=== PATIENT | female | born 1955 | race Caucasian/White ===

== ENCOUNTER 2016-08-07 08:55 | Emergency (ER) | payer OTHER ==
[2016-08-07] MEDS ORDERED: hydrALAZINE INJ 20 MG/ML VIAL As Ordered ONE (09:38)
[2016-08-07] MEDS ORDERED: diazePAM 5 MG TAB As Ordered ONE (09:39)
[2016-08-07 09:53] LABS: BASO % 0.8 % (0.0-1.0); EOS # 0.1 K/mm3 (0.0-0.50); EOS % 1.7 % (0.0-3.0); LARGE UNSTAINED CELL # 0.2 K/mm3 (0.0-0.4); LARGE UNSTAINED CELL % 3.8 % (0.0-4.0); LYMPH # 2.5 K/mm3 (1.5-4.5); LYMPH % 51.5 % (24.0-44.0); MONO # 0.4 K/mm3 (0.0-0.8); MONO % 7.2 % (0.0-5.0); NEUTROPHILS # 1.7 K/mm3 (1.8-7.7); PLATELET COUNT, AUTOMATED 127 k/mm3 (150-450); RED CELL DISTRIBUTION WIDTH 12.2 % (11.5-14.5); WHITE BLOOD COUNT 4.9 K/mm3 (4.0-10.0)
[2016-08-07 10:03] LABS: MEAN CORPUSCULAR HEMOGLOBIN 32.1 pg (27.0-33.0); MEAN CORPUSCULAR HGB CONC 33.6 g/dl (32.0-36.5); MEAN CORPUSCULAR VOLUME 95.6 fl (80.0-96.0)
[2016-08-07 10:10] LABS: ALBUMIN 3.9 GM/DL (3.2-5.2); ALBUMIN/GLOBULIN RATIO 0.78 (1.00-1.93); ALKALINE PHOSPHATASE 87 U/L (45-117); ALT/SGPT 303 U/L (12-78); ANION GAP 8 MEQ/L (8-16); AST/SGOT 152 U/L (15-37); BILIRUBIN,DIRECT 0.2 MG/DL (0.0-0.2); BILIRUBIN,TOTAL 0.5 MG/DL (0.2-1.0); BLOOD UREA NITROGEN 12 MG/DL (7-18); CALCIUM LEVEL 9.3 MG/DL (8.8-10.2); CARBON DIOXIDE LEVEL 28 MEQ/L (21-32); CHLORIDE LEVEL 106 MEQ/L (98-107); CREATININE FOR GFR 0.64 MG/DL (0.55-1.02); GLOMERULAR FILTRATION RATE > 60.0 (>45); GLUCOSE, FASTING 105 MG/DL (80-110); POTASSIUM SERUM 3.7 MEQ/L (3.5-5.1); SODIUM LEVEL 142 MEQ/L (136-145); TOTAL PROTEIN 8.9 GM/DL (6.4-8.2)
--- NOTE | 2016-08-07 11:50 | EDDOCDS ---
Nurse's Notes [facility] Name: Nasrin Martel Age: 61 yrs Sex: Female : 1955 Arrival Date: 08/07/2016 Time: 08:55 Bed 11 Private MD: Diagnosis: Secondary hypertension, unspecified Presentation: 08/07 09:01 Presenting complaint: Patient states: Went to have tooth pulled today and was told to [facility] come to ED for elevated blood pressure. Has been having dizziness, palpitations. Adult Sepsis Screening: The patient does not have new or worsening altered mentation. Patient's respiratory rate is less than 22. Systolic blood pressure is greater than 100. Patient has a qSOFA score of 0- Negative Sepsis Screen. Suicide/Homicide risk assessment- the patient denies having any suicidal and/or homicidal ideations and does not present with any other emotional, behavioral or mental health complaints. 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 Transition of care: patient was not received from another setting of care. 09:01 Acuity: PATTI Level 3 [facility] 09:01 Method Of Arrival: Walkin/Carried/[facility]std [facility] Triage Assessment: 09:03 General: Appears distressed, Behavior is anxious, cooperative. Pain: Denies pain. HIV [facility] screening NA for this visit Offered previously. Neurological: Reports dizziness. Respiratory: Airway is patent Respiratory effort is even, unlabored. Derm: Skin is pink, warm & dry. Historical: - Allergies: PENICILLINS; Codeine Sulfate; - Home Meds: 1. none - PMHx: Arthritis; hypoglycemia; - PSHx: none; - Social history: Smoking status: Patient states former smoker of tobacco. No barriers to communication noted, The patient speaks fluent Tajik. - Family history: Not pertinent. - : The pt / caregiver states he / she is not on anticoagulants. Home medication list is obtained from the patient. - Exposure Risk Screening:: None identified. Screenin:55 Screening information is obtained from the patient. Fall risk: No risks identified. ja5 Assistance ADL's: requires no assistance with activities of daily living. Abuse/DV Screen: The patient / caregiver reports he/she is: not in a situation that causes fear, pain or injury. Nutritional screening: On no prescribed diet. Advance Directives: Currently, there is no health care proxy. There is no active DNR order. There is no living will. There is no Power of Environmental Tech. home support is adequate. Assessment: 09:30 General: Pt anxious. Initially is resistant to having IV placed, does not want to have jc4 blood work done. States feels very anxious. Explained procedure to patient, patient is agreeable but is requesting to have Valium administered, states, "I want just a small dose, 2.[address] mg". Dr. Staley made aware. 09:57 General: Appears distressed, Behavior is anxious. Pain: Denies pain. Neurological: ja5 Level of Consciousness is awake, alert, Oriented to person, place, time, Speech is normal, Facial symmetry appears normal. Cardiovascular: Capillary refill < 3 seconds Heart tones S1 S2 present. Respiratory: Airway is patent Respiratory effort is even, unlabored, Respiratory pattern is regular, symmetrical, Breath sounds are clear bilaterally. Derm: Skin is intact, Skin is Skin is pink, warm & dry. 11:17 General: Patient is currently resting in stretcher and states that she is relaxed, ja5 comfortable and has no needs at this time.. 11:45 General: Appears in no apparent distress, Behavior is appropriate for age, cooperative. ja5 Pain: Denies pain. Neurological: Level of Consciousness is awake, alert, Oriented to person, place, time. Cardiovascular: Capillary refill < 3 seconds. Respiratory: Airway is patent Respiratory effort is even, unlabored, Respiratory pattern is regular, symmetrical. Derm: Skin is intact, Skin is pink, warm & dry. Vital Signs: 09:00 BP 262 / 137; Pulse 109; Resp 18; Temp 98.3; Pulse Ox 97% on R/A; Weight 48.99 kg; [facility] Height 5 ft. (152.40 cm); Pain 0/10; 09:24 BP 218 / 92 RA Sitting (man/); jc4 09:24 BP 230 / 98 LA Sitting (man/); jc4 09:57 BP 190 / 89 (auto/); jc4 09:57 Pulse 78 MON; Pulse Ox 97% ; jc4 10:12 BP 177 / 88 (auto/); jc4 10:12 Pulse 86 MON; Pulse Ox 96% ; jc4 10:27 BP 178 / 93 (auto/); jc4 10:27 Pulse 78 MON; Pulse Ox 96% ; jc4 10:42 BP 178 / 96 (auto/); jc4 10:43 Pulse 82 MON; Pulse Ox 97% ; jc4 11:16 BP 164 / 79 LA Supine (man/); ja5 11:43 BP 181 / 86 Supine (auto/); Pulse 84; Resp 14; Temp 98.4(O); Pulse Ox 96% on R/A; Pain ja5 0/10; 11:44 ja5 09:00 Body Mass Index 21.09 (48.99 kg, 152.40 cm) [facility] 11:44 Dr. Staley has been notified of final blood pressure 5 Vitals: 09:00 Log In Time: August 07, 2016 at 08:52. [facility] ED Course: 08:56 Patient visited by Genna Schmidt. mm15 08:56 Patient moved to [place] [id number] 09:02 Triage Initiated [facility] 09:03 Patient visited by Briseyda Huggins RN. [facility] 09:04 Kera OwensRN is Primary Nurse. [facility] 09:04 Maddy Loaiza RN is Primary Nurse. [facility] 09:04 Patient moved to [facility] 09:07 Patient visited by Flaquita Staley MD. fg 09:07 Flaquita Staley MD is Attending Physician. fg 09:12 EKG done. (by ED staff). Reviewed by Flaquita Staley MD. jrd 09:35 Basic Metabolic Profile Sent. jc4 09:35 CBC with Diff Sent. jc4 09:36 LIVER PROFILE Sent. jc4 09:45 Inserted saline lock: 20 gauge in right antecubital area The patient tolerated the jc4 procedure well. 09:49 Patient visited by Maddy Loaiza RN. jc4 09:49 The patient / caregiver is instructed regarding the plan of care and ED course. jc4 10:02 Patient visited by Lucrecia Lyons RN. ja5 10:52 [facility] Payment Agreement was scanned into [place] [employer] and attached to record. lg 11:16 Patient visited by Lucrecia Lyons RN. ja5 11:32 [facility] is Referral Physician. fg 11:45 No procedures done that require assistance. ja5 11:47 Discontinued lock bleeding controlled, pressure dressing applied, No redness/swelling ja5 at site. Administered Medications: 09:25 Not Given (Duplicate Order): hydrALAZINE 10 mg IV at bolus once fg 09:36 Not Given (Patient Refused): LORazepam 0.5 mg PO once fg 09:50 Drug: hydrALAZINE 5 mg [hydralazine 20 mg/mL injection solution] Route: IV; Rate: ja5 bolus; Site: right antecubital; 09:50 Drug: Diazepam 2.5 mg [diazepam 5 mg tablet (0.5 tabs)] Route: PO; ja5 Order Results: Lab Order: CBC with Diff; SPEC'M 08/07/16 09:34 Test: WHITE BLOOD COUNT; Value: 4.9; Range: 4.0-10.0; Units: K/mm3; Status: F Test: RED BLOOD COUNT; Value: 4.83; Range: 4.00-5.40; Units: M/mm3; Status: F Test: HEMOGLOBIN; Value: 15.8; Range: 12.0-16.0; Units: g/dl; Status: F Test: HEMATOCRIT; Value: 46.2; Range: 36.0-47.0; Units: %; Status: F Test: MEAN CORPUSCULAR VOLUME; Value: 95.6; Range: 80.0-96.0; Units: fl; Status: F Test: MEAN CORPUSCULAR HEMOGLOBIN; Value: 32.1; Range: 27.0-33.0; Units: pg; Status: F Test: MEAN CORPUSCULAR HGB CONC; Value: 33.6; Range: 32.0-36.5; Units: g/dl; Status: F Test: RED CELL DISTRIBUTION WIDTH; Value: 12.2; Range: 11.5-14.5; Units: %; Status: F Test: PLATELET COUNT, AUTOMATED; Value: 127; Range: 150-450; Abnormal: Below low normal; Units: k/mm3; Status: F Test: NEUTROPHILS %; Value: 35.0; Range: 36.0-66.0; Abnormal: Below low normal; Units: %; Status: F Test: LYMPH %; Value: 51.5; Range: 24.0-44.0; Abnormal: Above high normal; Units: %; Status: F Test: MONO %; Value: 7.2; Range: 0.0-5.0; Abnormal: Above high normal; Units: %; Status: F Test: EOS %; Value: 1.7; Range: 0.0-3.0; Units: %; Status: F Test: BASO %; Value: 0.8; Range: 0.0-1.0; Units: %; Status: F Test: LARGE UNSTAINED CELL %; Value: 3.8; Range: 0.0-4.0; Units: %; Status: F Test: NEUTROPHILS #; Value: 1.7; Range: 1.8-7.7; Abnormal: Below low normal; Units: K/mm3; Status: F Test: LYMPH #; Value: 2.5; Range: 1.5-4.5; Units: K/mm3; Status: F Test: MONO #; Value: 0.4; Range: 0.0-0.8; Units: K/mm3; Status: F Test: EOS #; Value: 0.1; Range: 0.0-0.50; Units: K/mm3; Status: F Test: BASO #; Value: 0.0; Range: 0.0-0.2; Units: K/mm3; Status: F Test: LARGE UNSTAINED CELL #; Value: 0.2; Range: 0.0-0.4; Units: K/mm3; Status: F Lab Order: Basic Metabolic Profile; SPEC'M 08/07/16 09:34 Test: GLUCOSE, FASTING; Value: 105; Range: 80-110; Units: MG/DL; Status: F Test: BLOOD UREA NITROGEN; Value: 12; Range: 7-18; Units: MG/DL; Status: F Test: CREATININE FOR GFR; Value: 0.64; Range: 0.55-1.02; Units: MG/DL; Status: F Test: GLOMERULAR FILTRATION RATE; Value: > 60.0; Range: >45; Status: F Test: SODIUM LEVEL; Value: 142; Range: 136-145; Units: MEQ/L; Status: F Test: POTASSIUM SERUM; Value: 3.7; Range: 3.5-5.1; Units: MEQ/L; Status: F Test: CHLORIDE LEVEL; Value: 106; Range: 98-107; Units: MEQ/L; Status: F Test: CARBON DIOXIDE LEVEL; Value: 28; Range: 21-32; Units: MEQ/L; Status: F Test: ANION GAP; Value: 8; Range: 8-16; Units: MEQ/L; Status: F Test: CALCIUM LEVEL; Value: 9.3; Range: 8.8-10.2; Units: MG/DL; Status: F Test Note: ; Units are mL/min/1.73 m2 Chronic Kidney Disease Staging per NKF: Stage I & II GFR >=60 Normal to Mildly Decreased Stage III GFR 30-59 Moderately Decreased Stage IV GFR 15-29 Severely Decreased Stage V GFR <15 Very Little GFR Left ESRD GFR <15 on [employer] Lab Order: LIVER PROFILE; LAZARO'Ramses 08/07/16 09:34 Test: AST/SGOT; Value: 152; Range: 15-37; Abnormal: Above high normal; Units: U/L; Status: F Test: ALT/SGPT; Value: 303; Range: 12-78; Abnormal: Above high normal; Units: U/L; Status: F Test: ALKALINE PHOSPHATASE; Value: 87; Range: 45-117; Units: U/L; Status: F Test: BILIRUBIN,TOTAL; Value: 0.5; Range: 0.2-1.0; Units: MG/DL; Status: F Test: BILIRUBIN,DIRECT; Value: 0.2; Range: 0.0-0.2; Units: MG/DL; Status: F Test: TOTAL PROTEIN; Value: 8.9; Range: 6.4-8.2; Abnormal: Above high normal; Units: GM/DL; Status: F Test: ALBUMIN; Value: 3.9; Range: 3.2-5.2; Units: GM/DL; Status: F Test: ALBUMIN/GLOBULIN RATIO; Value: 0.78; Range: 1.00-1.93; Abnormal: Below low normal; Status: F Outcome: 11:32 Discharge ordered by Provider. fg 11:47 Discharge Assessment: Patient awake, alert and oriented x 3. No cognitive and/or ja5 functional deficits noted. Patient verbalized understanding of disposition instructions. patient administered narcotics - yes. Pt provided with safe discharge. The following High Risk Discharge criteria are identified: None. Discharged to home ambulatory, with significant other. Condition: stable. Discharge instructions given to patient, Instructed on discharge instructions, follow up and referral plans. medication usage, Demonstrated understanding of instructions, medications, Pt was receptive of discharge instructions/ teaching. No special radiology studies were completed. Property :Personal belongings accompany Pt. 11:49 Patient left the ED. ja5 Signatures: Briseyda Huggins, RN RN Kathy Chaudhary, Maddy Jimenez lg, RN RN jc4 Genna Schmidt mm15 Aki Al, JULIEN CHANNEL LIP STIFFENER INSOLES d Flaquita Staley MD MD fg Anderson, Jessica,RN RN ja5 MTDD
--- NOTE | 2016-08-07 11:50 | EDDOCDS ---
Physician Documentation [facility] Name: Nasrin Martel Age: 61 yrs Sex: Female : 1955 Arrival Date: 08/07/2016 Time: 08:55 Bed 11 Private MD: Disposition: 08/07/16 11:32 Discharged to Home/Self Care. Impression: Secondary hypertension, unspecified. - Condition is Stable. - Discharge Instructions: Hypertension, [id number]. - Prescriptions for Captopril 12.5 mg Oral Tablet - take 1 tablet by ORAL route every 12 hours; 20 tablet. - Medication Reconciliation, Local Pharmacy Hours form. - [facility] up: [facility]; When: Call to arrange an appointment; Reason: Continuance of care. - Problem is chronic. - Symptoms are unchanged. Historical: - Allergies: PENICILLINS; Codeine Sulfate; - Home Meds: 1. none - PMHx: Arthritis; hypoglycemia; - PSHx: none; - Social history: Smoking status: Patient states former smoker of tobacco. No barriers to communication noted, The patient speaks fluent Mosotho. - Family history: Not pertinent. - : The pt / caregiver states he / she is not on anticoagulants. Home medication list is obtained from the patient. - Exposure Risk Screening:: None identified. Vital Signs: 08/07 09:00 BP 262 / 137; Pulse 109; Resp 18; Temp 98.3; Pulse Ox 97% on R/A; Weight 48.99 kg / 108 mcp lbs; Height 5 ft. (152.40 cm); Pain 0/10; 09:24 BP 218 / 92 RA Sitting (man/); jc4 09:24 BP 230 / 98 LA Sitting (man/); jc4 09:57 BP 190 / 89 (auto/); jc4 09:57 Pulse 78 MON; Pulse Ox 97% ; jc4 10:12 BP 177 / 88 (auto/); jc4 10:12 Pulse 86 MON; Pulse Ox 96% ; jc4 10:27 BP 178 / 93 (auto/); jc4 10:27 Pulse 78 MON; Pulse Ox 96% ; jc4 10:42 BP 178 / 96 (auto/); jc4 10:43 Pulse 82 MON; Pulse Ox 97% ; jc4 11:16 BP 164 / 79 LA Supine (man/); ja5 11:43 BP 181 / 86 Supine (auto/); Pulse 84; Resp 14; Temp 98.4(O); Pulse Ox 96% on R/A; Pain ja5 0/10; 11:44 ja5 09:00 Body Mass Index 21.09 (48.99 kg, 152.40 cm) [facility] 11:44 Dr. Staley has been notified of final blood pressure ja5 MDM: 09:06 ECG WITH READING ER PHYS+CARDIAG ordered. EDMS 09:08 IV Saline Lock ordered. fg 09:08 hydrALAZINE 10 mg IV at bolus once ordered. fg 09:08 Misc. Nursing Order ordered. fg 09:09 CBC with Diff Ordered. EDMS 09:09 Basic Metabolic Profile Ordered. EDMS 09:25 hydrALAZINE 5 mg IV at bolus once ordered. fg 09:25 LORazepam 0.5 mg PO once ordered. fg 09:26 LIVER PROFILE Ordered. EDMS 09:36 Diazepam 2.5 mg PO once ordered. fg 10:04 Financial registration complete. 10:52 [facility] Payment Agreement was scanned into [employer] and attached to record. lg Administered Medications: 09:25 Not Given (Duplicate Order): hydrALAZINE 10 mg IV at bolus once fg 09:36 Not Given (Patient Refused): LORazepam 0.5 mg PO once fg 09:50 Drug: hydrALAZINE 5 mg [hydralazine 20 mg/mL injection solution] Route: IV; Rate: ja5 bolus; Site: right antecubital; 09:50 Drug: Diazepam 2.5 mg [diazepam 5 mg tablet (0.5 tabs)] Route: PO; ja5 Signatures: Dispatcher [employer] EDBriseyda Mora RN RN mcp Ganter, LoriLee, Reg Reg Flaquita Staley MD MD Lucrecia Lyons RN RN ja5 The chart was reviewed and I authenticate all verbal orders and agree with the evaluation and treatment provided.Corrections: (The following items were deleted from the chart) 09:26 09:23 LIVER PROFILE+LAB ordered. EDMI EDMS Attachments: 10:52 [facility] Payment Agreement lg MTDD
--- NOTE | 2016-08-08 06:44 | ECGEPIP ---
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
--- NOTE | 2016-08-09 12:50 | EDDOCDS ---
Physician Documentation [facility] Name: Nasrin Martel Age: 61 yrs Sex: Female : 1955 Arrival Date: 08/07/2016 Time: 08:55 Bed 11 Private MD: Disposition: 08/07/16 11:32 Discharged to Home/Self Care. Impression: Secondary hypertension, unspecified. - Condition is Stable. - Discharge Instructions: Hypertension, [id number]. - Prescriptions for Captopril 12.5 mg Oral Tablet - take 1 tablet by ORAL route every 12 hours; 20 tablet. - Medication Reconciliation, Local Pharmacy Hours form. - Follow up: [facility]; When: Call to arrange an appointment; Reason: Continuance of care. - Problem is chronic. - Symptoms are unchanged. Historical: - Allergies: PENICILLINS; Codeine Sulfate; - Home Meds: 1. none - PMHx: Arthritis; hypoglycemia; - PSHx: none; - Social history: Smoking status: Patient states former smoker of tobacco. No barriers to communication noted, The patient speaks fluent [place]. - Family history: Not pertinent. - : The pt / caregiver states he / she is not on anticoagulants. Home medication list is obtained from the patient. - Exposure Risk Screening:: None identified. Vital Signs: 08/07 09:00 BP 262 / 137; Pulse 109; Resp 18; Temp 98.3; Pulse Ox 97% on R/A; Weight 48.99 kg / 108 mcp lbs; Height 5 ft. (152.40 cm); Pain 0/10; 09:24 BP 218 / 92 RA Sitting (man/); jc4 09:24 BP 230 / 98 LA Sitting (man/); jc4 09:57 BP 190 / 89 (auto/); jc4 09:57 Pulse 78 MON; Pulse Ox 97% ; jc4 10:12 BP 177 / 88 (auto/); jc4 10:12 Pulse 86 MON; Pulse Ox 96% ; jc4 10:27 BP 178 / 93 (auto/); jc4 10:27 Pulse 78 MON; Pulse Ox 96% ; jc4 10:42 BP 178 / 96 (auto/); jc4 10:43 Pulse 82 MON; Pulse Ox 97% ; jc4 11:16 BP 164 / 79 LA Supine (man/); ja5 11:43 BP 181 / 86 Supine (auto/); Pulse 84; Resp 14; Temp 98.4(O); Pulse Ox 96% on R/A; Pain ja5 0/10; 11:44 ja5 09:00 Body Mass Index 21.09 (48.99 kg, 152.40 cm) [facility] 11:44 Dr. Staley has been notified of final blood pressure ja5 MDM: 09:06 ECG WITH READING ER PHYS+CARDIAG ordered. EDMS 09:08 IV Saline Lock ordered. fg 09:08 hydrALAZINE 10 mg IV at bolus once ordered. fg 09:08 Misc. Nursing Order ordered. fg 09:09 CBC with Diff Ordered. EDMS 09:09 Basic Metabolic Profile Ordered. EDMS 09:25 hydrALAZINE 5 mg IV at bolus once ordered. fg 09:25 LORazepam 0.5 mg PO once ordered. fg 09:26 LIVER PROFILE Ordered. EDMS 09:36 Diazepam 2.5 mg PO once ordered. fg 10:04 Financial registration complete. lg 10:52 [facility] Payment Agreement was scanned into [employer] and attached to record. lg 13:58 T-Sheet-- Draft Copy was scanned into [employer] and attached to record. gb 13:58 ECG/EKG was scanned into [employer] and attached to record. gb 13:58 Trend VS was scanned into [employer] and attached to record. gb Administered Medications: 09:25 Not Given (Duplicate Order): hydrALAZINE 10 mg IV at bolus once fg 09:36 Not Given (Patient Refused): LORazepam 0.5 mg PO once fg 09:50 Drug: hydrALAZINE 5 mg [hydralazine 20 mg/mL injection solution] Route: IV; Rate: ja5 bolus; Site: right antecubital; 09:50 Drug: Diazepam 2.5 mg [diazepam 5 mg tablet (0.5 tabs)] Route: PO; ja5 Signatures: Dispatcher [employer] EDBriseyda Mora RN RN [facility] Rachel Fernando, Reg Reg gb Kathy Peng, Reg Reg lg Flaquita Staley MD MD fg Anderson, JessicaRN JOSÉ day The chart was reviewed and I authenticate all verbal orders and agree with the evaluation and treatment provided.Corrections: (The following items were deleted from the chart) 09:26 09:23 LIVER PROFILE+LAB ordered. EDMS EDMS Attachments: 10:52 [facility] Payment Agreement lg 13:58 T-Sheet-- Draft Copy gb 13:58 ECG/EKG gb Chart Complete MTDD
--- NOTE | 2016-08-09 12:50 | EDDOCDS ---
Nurse's Notes [facility] Name: Dede Martel Age: 61 yrs Sex: Female : 1955 Arrival Date: 08/07/2016 Time: 08:55 Bed 11 Private MD: Diagnosis: Secondary hypertension, unspecified Presentation: 08/07 09:01 Presenting complaint: Patient states: Went to have tooth pulled today and was told to [facility] come to ED for elevated blood pressure. Has been having dizziness, palpitations. Adult Sepsis Screening: The patient does not have new or worsening altered mentation. Patient's respiratory rate is less than 22. Systolic blood pressure is greater than 100. Patient has a qSOFA score of 0- Negative Sepsis Screen. Suicide/Homicide risk assessment- the patient denies having any suicidal and/or homicidal ideations and does not present with any other emotional, behavioral or mental health complaints. Status: Patient is not a clinical laboratory service teacher or dependent. Transition of care: patient was not received from another setting of care. 09:01 Acuity: PATTI Level 3 [facility] 09:01 Method Of Arrival: Walkin/Carried/Asstd [facility] Triage Assessment: 09:03 General: Appears distressed, Behavior is anxious, cooperative. Pain: Denies pain. HIV [facility] screening NA for this visit Offered previously. Neurological: Reports dizziness. Respiratory: Airway is patent Respiratory effort is even, unlabored. Derm: Skin is pink, warm & dry. Historical: - Allergies: PENICILLINS; Codeine Sulfate; - Home Meds: 1. none - PMHx: Arthritis; hypoglycemia; - PSHx: none; - Social history: Smoking status: Patient states former smoker of tobacco. No barriers to communication noted, The patient speaks fluent Maltese. - Family history: Not pertinent. - : The pt / caregiver states he / she is not on anticoagulants. Home medication list is obtained from the patient. - Exposure Risk Screening:: None identified. Screenin:55 Screening information is obtained from the patient. Fall risk: No risks identified. ja5 Assistance ADL's: requires no assistance with activities of daily living. Abuse/DV Screen: The patient / caregiver reports he/she is: not in a situation that causes fear, pain or injury. Nutritional screening: On no prescribed diet. Advance Directives: Currently, there is no health care proxy. There is no active DNR order. There is no living will. There is no Power of Order Checker. home support is adequate. Assessment: 09:30 General: Pt anxious. Initially is resistant to having IV placed, does not want to have jc4 blood work done. States feels very anxious. Explained procedure to patient, patient is agreeable but is requesting to have Valium administered, states, "I want just a small dose, 2.[address] mg[address] Dr[address] Staley made aware. 09:57 General: Appears distressed, Behavior is anxious. Pain: Denies pain. Neurological: ja5 Level of Consciousness is awake, alert, Oriented to person, place, time, Speech is normal, Facial symmetry appears normal. Cardiovascular: Capillary refill < 3 seconds Heart tones S1 S2 present. Respiratory: Airway is patent Respiratory effort is even, unlabored, Respiratory pattern is regular, symmetrical, Breath sounds are clear bilaterally. Derm: Skin is intact, Skin is Skin is pink, warm & dry. 11:17 General: Patient is currently resting in stretcher and states that she is relaxed, ja5 comfortable and has no needs at this time.. 11:45 General: Appears in no apparent distress, Behavior is appropriate for age, cooperative. ja5 Pain: Denies pain. Neurological: Level of Consciousness is awake, alert, Oriented to person, place, time. Cardiovascular: Capillary refill < 3 seconds. Respiratory: Airway is patent Respiratory effort is even, unlabored, Respiratory pattern is regular, symmetrical. Derm: Skin is intact, Skin is pink, warm & dry. Vital Signs: 09:00 BP 262 / 137; Pulse 109; Resp 18; Temp 98.3; Pulse Ox 97% on R/A; Weight 48.99 kg; [facility] Height 5 ft. (152.40 cm); Pain 0/10; 09:24 BP 218 / 92 RA Sitting (man/); jc4 09:24 BP 230 / 98 LA Sitting (man/); jc4 09:57 BP 190 / 89 (auto/); jc4 09:57 Pulse 78 MON; Pulse Ox 97% ; jc4 10:12 BP 177 / 88 (auto/); jc4 10:12 Pulse 86 MON; Pulse Ox 96% ; jc4 10:27 BP 178 / 93 (auto/); jc4 10:27 Pulse 78 MON; Pulse Ox 96% ; jc4 10:42 BP 178 / 96 (auto/); jc4 10:43 Pulse 82 MON; Pulse Ox 97% ; jc4 11:16 BP 164 / 79 LA Supine (man/); ja5 11:43 BP 181 / 86 Supine (auto/); Pulse 84; Resp 14; Temp 98.4(O); Pulse Ox 96% on R/A; Pain ja5 0/10; 11:44 ja5 09:00 Body Mass Index 21.09 (48.99 kg, 152.40 cm) [facility] 11:44 Dr. Staley has been notified of final blood pressure 5 Vitals: 09:00 Log In Time: August 07, 2016 at 08:52. [facility] ED Course: 08:56 Patient visited by Genna Schmidt. mm15 08:56 Patient moved to [facility]15 09:02 Triage Initiated [facility] 09:03 Patient visited by Briseyda Huggins RN. [facility] 09:04 Kera Owens,RN is Primary Nurse. [facility] 09:04 Maddy Loaiza, JOSÉ is Primary Nurse. [facility] 09:04 Patient moved to [facility] 09:07 Patient visited by Flaquita Staley MD. fg 09:07 Flaquita Staley MD is Attending Physician. fg 09:12 EKG done. (by ED staff). Reviewed by Flaquita Staley MD. jrd 09:35 Basic Metabolic Profile Sent. jc4 09:35 CBC with Diff Sent. jc4 09:36 LIVER PROFILE Sent. jc4 09:45 Inserted saline lock: 20 gauge in right antecubital area The patient tolerated the jc4 procedure well. 09:49 Patient visited by Maddy Loaiza RN. jc4 09:49 The patient / caregiver is instructed regarding the plan of care and ED course. jc4 10:02 Patient visited by Lucrecia Lyons RN. ja5 10:52 [facility] Payment Agreement was scanned into [employer] and attached to record. lg 11:16 Patient visited by Lucrecia Lyons RN. ja5 11:32 [facility] is Referral Physician. fg 11:45 No procedures done that require assistance. ja5 11:47 Discontinued lock bleeding controlled, pressure dressing applied, No redness/swelling ja5 at site. 13:58 T-Sheet-- Draft Copy was scanned into [employer] and attached to record. gb 13:58 ECG/EKG was scanned into [employer] and attached to record. 13:58 Trend VS was scanned into [employer] and attached to record. gb 08/08 06:53 EKG-ADULT Returned. EDMS Administered Medications: 08/07 09:25 Not Given (Duplicate Order): hydrALAZINE 10 mg IV at bolus once fg 09:36 Not Given (Patient Refused): LORazepam 0.5 mg PO once fg 09:50 Drug: hydrALAZINE 5 mg [hydralazine 20 mg/mL injection solution] Route: IV; Rate: ja5 bolus; Site: right antecubital; 09:50 Drug: Diazepam 2.5 mg [diazepam 5 mg tablet (0.5 tabs)] Route: PO; ja5 Attachments: 13:58 Trend VS gb Order Results: Lab Order: CBC with Diff; SPEC'M 08/07/16 09:34 Test: WHITE BLOOD COUNT; Value: 4.9; Range: 4.0-10.0; Units: K/mm3; Status: F Test: RED BLOOD COUNT; Value: 4.83; Range: 4.00-5.40; Units: M/mm3; Status: F Test: HEMOGLOBIN; Value: 15.8; Range: 12.0-16.0; Units: g/dl; Status: F Test: HEMATOCRIT; Value: 46.2; Range: 36.0-47.0; Units: %; Status: F Test: MEAN CORPUSCULAR VOLUME; Value: 95.6; Range: 80.0-96.0; Units: fl; Status: F Test: MEAN CORPUSCULAR HEMOGLOBIN; Value: 32.1; Range: 27.0-33.0; Units: pg; Status: F Test: MEAN CORPUSCULAR HGB CONC; Value: 33.6; Range: 32.0-36.5; Units: g/dl; Status: F Test: RED CELL DISTRIBUTION WIDTH; Value: 12.2; Range: 11.5-14.5; Units: %; Status: F Test: PLATELET COUNT, AUTOMATED; Value: 127; Range: 150-450; Abnormal: Below low normal; Units: k/mm3; Status: F Test: NEUTROPHILS %; Value: 35.0; Range: 36.0-66.0; Abnormal: Below low normal; Units: %; Status: F Test: LYMPH %; Value: 51.5; Range: 24.0-44.0; Abnormal: Above high normal; Units: %; Status: F Test: MONO %; Value: 7.2; Range: 0.0-5.0; Abnormal: Above high normal; Units: %; Status: F Test: EOS %; Value: 1.7; Range: 0.0-3.0; Units: %; Status: F Test: BASO %; Value: 0.8; Range: 0.0-1.0; Units: %; Status: F Test: LARGE UNSTAINED CELL %; Value: 3.8; Range: 0.0-4.0; Units: %; Status: F Test: NEUTROPHILS #; Value: 1.7; Range: 1.8-7.7; Abnormal: Below low normal; Units: K/mm3; Status: F Test: LYMPH #; Value: 2.5; Range: 1.5-4.5; Units: K/mm3; Status: F Test: MONO #; Value: 0.4; Range: 0.0-0.8; Units: K/mm3; Status: F Test: EOS #; Value: 0.1; Range: 0.0-0.50; Units: K/mm3; Status: F Test: BASO #; Value: 0.0; Range: 0.0-0.2; Units: K/mm3; Status: F Test: LARGE UNSTAINED CELL #; Value: 0.2; Range: 0.0-0.4; Units: K/mm3; Status: F Lab Order: Basic Metabolic Profile; [facility] 08/07/16 09:34 Test: GLUCOSE, FASTING; Value: 105; Range: 80-110; Units: MG/DL; Status: F Test: BLOOD UREA NITROGEN; Value: 12; Range: 7-18; Units: MG/DL; Status: F Test: CREATININE FOR GFR; Value: 0.64; Range: 0.55-1.02; Units: MG/DL; Status: F Test: GLOMERULAR FILTRATION RATE; Value: > 60.0; Range: >45; Status: F Test: SODIUM LEVEL; Value: 142; Range: 136-145; Units: MEQ/L; Status: F Test: POTASSIUM SERUM; Value: 3.7; Range: 3.5-5.1; Units: MEQ/L; Status: F Test: CHLORIDE LEVEL; Value: 106; Range: 98-107; Units: MEQ/L; Status: F Test: CARBON DIOXIDE LEVEL; Value: 28; Range: 21-32; Units: MEQ/L; Status: F Test: ANION GAP; Value: 8; Range: 8-16; Units: MEQ/L; Status: F Test: CALCIUM LEVEL; Value: 9.3; Range: 8.8-10.2; Units: MG/DL; Status: F Test Note: ; Units are mL/min/1.73 m2 Chronic Kidney Disease Staging per NKF: Stage I & II GFR >=60 Normal to Mildly Decreased Stage III GFR 30-59 Moderately Decreased Stage IV GFR 15-29 Severely Decreased Stage V GFR <15 Very Little GFR Left ESRD GFR <15 on CHASER HELPER Lab Order: LIVER PROFILE; [facility] 08/07/16 09:34 Test: AST/SGOT; Value: 152; Range: 15-37; Abnormal: Above high normal; Units: U/L; Status: F Test: ALT/SGPT; Value: 303; Range: 12-78; Abnormal: Above high normal; Units: U/L; Status: F Test: ALKALINE PHOSPHATASE; Value: 87; Range: 45-117; Units: U/L; Status: F Test: BILIRUBIN,TOTAL; Value: 0.5; Range: 0.2-1.0; Units: MG/DL; Status: F Test: BILIRUBIN,DIRECT; Value: 0.2; Range: 0.0-0.2; Units: MG/DL; Status: F Test: TOTAL PROTEIN; Value: 8.9; Range: 6.4-8.2; Abnormal: Above high normal; Units: GM/DL; Status: F Test: ALBUMIN; Value: 3.9; Range: 3.2-5.2; Units: GM/DL; Status: F Test: ALBUMIN/GLOBULIN RATIO; Value: 0.78; Range: 1.00-1.93; Abnormal: Below low normal; Status: F Radiology Order: EKG-ADULT Test: EKG-ADULT REASON FOR EXAMINATION: hypertension; Stationary ECG Study; 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 fg 11:47 Discharge Assessment: Patient awake, alert and oriented x 3. No cognitive and/or ja5 functional deficits noted. Patient verbalized understanding of disposition instructions. patient administered narcotics - yes. Pt provided with safe discharge. The following High Risk Discharge criteria are identified: None. Discharged to home ambulatory, with significant other. Condition: stable. Discharge instructions given to patient, Instructed on discharge instructions, follow up and referral plans. medication usage, Demonstrated understanding of instructions, medications, Pt was receptive of discharge instructions/ teaching. No special radiology studies were completed. Property :Personal belongings accompany Pt. 11:49 Patient left the ED. ja5 Signatures: Dispatcher [employer] EDBriseyda Mora, RN RN Rachel Burt, Reg Reg gb Kathy Peng, Reg Reg lg Maddy Loaiza, RN RN minda4 Genna Schmidt mm15 Aki Al, JULIEN SOCIAL WORKER Flaquita Leo MD MD fg Anderson, Jessica,RN RN barb Chart Complete MTDD
--- NOTE | 2016-08-09 12:51 | EDDOCDS ---
Physician Documentation [facility] Name: Nasrin Martel Age: 61 yrs Sex: Female : 1955 Arrival Date: 08/07/2016 Time: 08:55 Bed 11 Private MD: Disposition: 08/07/16 11:32 Discharged to Home/Self Care. Impression: Secondary hypertension, unspecified. - Condition is Stable. - Discharge Instructions: Hypertension, [id number]. - Prescriptions for Captopril 12.5 mg Oral Tablet - take 1 tablet by ORAL route every 12 hours; 20 tablet. - Medication Reconciliation, Local Pharmacy Hours form. - Follow up: [facility]; When: Call to arrange an appointment; Reason: Continuance of care. - Problem is chronic. - Symptoms are unchanged. Historical: - Allergies: PENICILLINS; Codeine Sulfate; - Home Meds: 1. none - PMHx: Arthritis; hypoglycemia; - PSHx: none; - Social history: Smoking status: Patient states former smoker of tobacco. No barriers to communication noted, The patient speaks fluent Tristanian. - Family history: Not pertinent. - : The pt / caregiver states he / she is not on anticoagulants. Home medication list is obtained from the patient. - Exposure Risk Screening:: None identified. Vital Signs: 08/07 09:00 BP 262 / 137; Pulse 109; Resp 18; Temp 98.3; Pulse Ox 97% on R/A; Weight 48.99 kg / 108 mcp lbs; Height 5 ft. (152.40 cm); Pain 0/10; 09:24 BP 218 / 92 RA Sitting (man/); jc4 09:24 BP 230 / 98 LA Sitting (man/); jc4 09:57 BP 190 / 89 (auto/); jc4 09:57 Pulse 78 MON; Pulse Ox 97% ; jc4 10:12 BP 177 / 88 (auto/); jc4 10:12 Pulse 86 MON; Pulse Ox 96% ; jc4 10:27 BP 178 / 93 (auto/); jc4 10:27 Pulse 78 MON; Pulse Ox 96% ; jc4 10:42 BP 178 / 96 (auto/); jc4 10:43 Pulse 82 MON; Pulse Ox 97% ; jc4 11:16 BP 164 / 79 LA Supine (man/); ja5 11:43 BP 181 / 86 Supine (auto/); Pulse 84; Resp 14; Temp 98.4(O); Pulse Ox 96% on R/A; Pain ja5 0/10; 11:44 ja5 09:00 Body Mass Index 21.09 (48.99 kg, 152.40 cm) [facility] 11:44 Dr. Staley has been notified of final blood pressure ja5 MDM: 09:06 ECG WITH READING ER PHYS+CARDIAG ordered. EDMS 09:08 IV Saline Lock ordered. fg 09:08 hydrALAZINE 10 mg IV at bolus once ordered. fg 09:08 Misc. Nursing Order ordered. fg 09:09 CBC with Diff Ordered. EDMS 09:09 Basic Metabolic Profile Ordered. EDMS 09:25 hydrALAZINE 5 mg IV at bolus once ordered. fg 09:25 LORazepam 0.5 mg PO once ordered. fg 09:26 LIVER PROFILE Ordered. EDMS 09:36 Diazepam 2.5 mg PO once ordered. fg 10:04 Financial registration complete. lg 10:52 [facility] [place] Agreement was scanned into [employer] and attached to record. lg 13:58 T-Sheet-- Draft Copy was scanned into [employer] and attached to record. gb 13:58 ECG/EKG was scanned into [employer] and attached to record. gb 13:58 Trend VS was scanned into [employer] and attached to record. gb Administered Medications: 09:25 Not Given (Duplicate Order): hydrALAZINE 10 mg IV at bolus once fg 09:36 Not Given (Patient Refused): LORazepam 0.5 mg PO once fg 09:50 Drug: hydrALAZINE 5 mg [hydralazine 20 mg/mL injection solution] Route: IV; Rate: ja5 bolus; Site: right antecubital; 09:50 Drug: Diazepam 2.5 mg [diazepam 5 mg tablet (0.5 tabs)] Route: PO; ja5 Signatures: Dispatcher [employer] EDBriseyda Mora RN RN [facility] Rachel Fernando, Reg Reg gb Kathy Peng, Reg Reg lg Flaquita Staley MD MD fg Anderson, JessicaRN JOSÉ day The chart was reviewed and I authenticate all verbal orders and agree with the evaluation and treatment provided.Corrections: (The following items were deleted from the chart) 09:26 09:23 LIVER PROFILE+LAB ordered. EDMS EDMS Attachments: 10:52 [facility] Payment Agreement lg 13:58 T-Sheet-- Draft Copy gb 13:58 ECG/EKG gb Chart Complete MTDD
== END 2016-08-07 11:49 | disposition home or self-care (01) ==
LOC: M ED 08:55
DX: I10 Essential (primary) hypertension (principal); F41.9 Anxiety disorder, unspecified; M19.90 Unspecified osteoarthritis, unspecified site; E16.2 Hypoglycemia, unspecified; B19.20 Unspecified viral hepatitis C without hepatic coma; Z88.0 Allergy status to penicillin; Z88.2 Allergy status to sulfonamides; Z88.5 Allergy status to narcotic agent; Z87.891 Personal history of nicotine dependence

== ENCOUNTER 2018-02-27 14:07 | Emergency (ER) | payer OTHER, SELFPAY | END 2018-02-27 16:54 | disposition home or self-care (01) | LOC: M ED 14:07 | DX: R19.7 Diarrhea, unspecified (principal) | CPT/HCPCS: 87507 ==

== ENCOUNTER 2021-02-17 13:22 | Emergency (ER) | payer MEDICARE, OTHER ==
[~2021-02-17] VITALS: Ht 147.3 cm; Wt 48.2 kg
[2021-02-17] MEDS ORDERED: medical marijuana (13:43)
[2021-02-17] MEDS ORDERED: LABETALOL 100MG/20ML VIAL IV STA (14:54)
[2021-02-17 15:20] VITALS: BP 239/113
[2021-02-17 15:56] LABS: ALBUMIN 4.2 GM/DL (3.2-5.2); ALT/SGPT 244 U/L (12-78); BILIRUBIN,DIRECT 0.2 MG/DL (0.0-0.2); BILIRUBIN,TOTAL 0.6 MG/DL (0.2-1.0); LIPASE 81 U/L (73-393); TOTAL PROTEIN 9.3 GM/DL (6.4-8.2)
[2021-02-17 16:25] LABS: BLOOD UREA NITROGEN 10 MG/DL (7-18); CALCIUM LEVEL 10.1 MG/DL (8.8-10.2); CARBON DIOXIDE LEVEL 25 MEQ/L (21-32); CHLORIDE LEVEL 105 MEQ/L (98-107); CK-MB VALUE MASS < 1.0 NG/ML (<3.6); CPK CREATINE PHOSPHOKINASE 44 U/L (26-192); GLOMERULAR FILTRATION RATE > 60.0 (>45); GLUCOSE, FASTING 100 MG/DL (70-100); MB/CK RELATIVE INDEX 2.27 (< OR =4); POTASSIUM SERUM 3.8 MEQ/L (3.5-5.1); SODIUM LEVEL 138 MEQ/L (136-145); TROPONIN I < 0.02 NG/ML (< 0.10)
[2021-02-17 16:35] LABS: BASO % 0.4 % (0.0-1.0); EOS % 0.3 % (0.0-3.0); HEMATOCRIT 49.2 % (36.0-47.0); HEMOGLOBIN 17.2 g/dl (12.0-15.5); LYMPH # 2.4 10^3/uL (1.5-5.0); LYMPH % 35.1 % (24.0-44.0); MEAN CORPUSCULAR VOLUME 91.6 fl (80.0-96.0); MONO # 0.7 10^3/uL (0.0-0.8); MONO % 10.6 % (2.0-8.0); NEUTROPHILS # 3.6 10^3/uL (1.5-8.5); NEUTROPHILS % 53.3 % (36.0-66.0); PLATELET COUNT, AUTOMATED 219 10^3/uL (150-450); RED BLOOD COUNT 5.37 10^6/uL (4.00-5.40); WHITE BLOOD COUNT 6.7 10^3/uL (4.0-10.0)
[2021-02-17] MEDS ORDERED: ISOVUE-370 76% 100ML VIAL As Ordered ONE (16:35)
[2021-02-17] MEDS ORDERED: FUROSEMIDE 20MG/2ML VIAL (J1940) IV ONE (17:00)
--- NOTE | 2021-02-17 17:54 | REPVR ---
PROCEDURE INFORMATION: Exam: CT Abdomen And Pelvis With Contrast Exam date and time: 02/17/2021 5:01 PM Age: 65 years old Clinical indication: Abdominal pain; Additional info: Rlq pain TECHNIQUE: Imaging protocol: Computed tomography of the abdomen and pelvis with contrast. Radiation optimization: All CT scans at this facility use at least one of these dose optimization techniques: automated exposure control; mA and/or kV adjustment per patient size (includes targeted exams where dose is matched to clinical indication); or iterative reconstruction. Contrast material: ISOVUE 370; Contrast volume: 100 ml; Contrast route: INTRAVENOUS (IV); COMPARISON: No relevant prior studies available. FINDINGS: Liver: Multiple tiny low-density lesions within the liver, too small to accurately characterize. Gallbladder and bile ducts: Unremarkable. No calcified stones. No ductal dilation. Pancreas: Unremarkable. No ductal dilation. Spleen: Unremarkable. No splenomegaly. Adrenal glands: Normal. No mass. Kidneys and ureters: Unremarkable. No stones. No hydronephrosis. Stomach and bowel: There are numerous loops of dilated small bowel displaced against the anterior abdominal wall, ventral to the transverse colon, highly suspicious of a transmesenteric hernia. The distal small bowel is decompressed but there is a moderate fecal load throughout the colon. These changes are suspicious for partial small-bowel obstruction, although an early complete obstruction cannot be excluded. Surgical consultation is recommended. The stomach and colon are unremarkable. No bowel wall thickening or mesenteric edema identified. Appendix: No evidence of appendicitis. Intraperitoneal space: Unremarkable. No free air. No significant fluid collection. Vasculature: Mild atherosclerosis of the abdominal aorta. No aneurysm. Lymph nodes: Unremarkable. No enlarged lymph nodes. Urinary bladder: Unremarkable as visualized. Reproductive: Multiple calcified uterine fibroids. No adnexal mass. Bones/joints: Degenerative spondylosis and scoliosis of the lumbar spine. Soft tissues: Unremarkable. IMPRESSION: 1. Multiple tiny low-density lesions within the liver, too small to accurately characterize. In a low-risk patient, this lesion is most likely to be benign and no further follow-up is recommended. In a high-risk patient, recommend follow-up MRI in 3-6 months (or earlier if warranted by the patient's specific clinical circumstances). High-resolution patients include those with known malignancy with a propensity to metastasize to the liver, hepatic cirrhosis or the presence of hepatic risk factors. 2. Findings highly suspicious for transmesenteric hernia of small bowel with partial or early small bowel obstruction. Surgical consultation is recommended. Electronically signed by: Dale Hughes On 02/17/2021 17:54:06 PM
[2021-02-17] MEDS ORDERED: CARVedilol 6.25 MG TAB PO ONE (17:55)
[2021-02-17 18:00] VITALS: BP 189/105
[2021-02-17] MEDS ORDERED: CARV25TA PO (18:30)
--- NOTE | 2021-02-18 20:18 | ECGEPIP ---
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
== END 2021-02-17 18:39 | disposition left against medical advice (07) ==
LOC: M ED 13:22
DX: K56.601 Complete intestinal obstruction, unspecified as to cause (principal); I16.0 Hypertensive urgency; R93.2 Abnormal findings on diagnostic imaging of liver and biliary tract; Z53.9 Procedure and treatment not carried out, unspecified reason; I10 Essential (primary) hypertension; M19.90 Unspecified osteoarthritis, unspecified site; F32.9 Major depressive disorder, single episode, unspecified; Z86.19 Personal history of other infectious and parasitic diseases; Z87.891 Personal history of nicotine dependence; Z88.0 Allergy status to penicillin
CPT/HCPCS: 74177; 80048; 80076; 81001; 82550; 82553; 83690; 84484; 85025; 93005; 93041; 96374; 99285; Q9967

== ENCOUNTER 2025-04-21 11:47 | Emergency (ER) | payer OTHER, MEDICARE ==
[~2025-04-21] VITALS: Ht 149.9 cm; Wt 42.7 kg
[~2025-04-21 11:47] MED LIST: CARV25TA PO; medical marijuana
[2025-04-21 11:59] VITALS: BP 217/107; TEMP 98.3
[2025-04-21] MEDS ORDERED: PERC5TAB12 PO (13:40)
[2025-04-21 14:06] VITALS: O2SAT 96
[2025-04-21] MEDS: PERCOCET 5MG/325MG TAB PO ONE (14:06)
[2025-04-21] MEDS: LIDOCAINE 5% PATCH TD ONE (14:06)
== END 2025-04-21 14:11 | disposition home or self-care (01) ==
LOC: M ED 11:47 → EDBD 11:47 → M ED 14:11
DX: S32.010A Wedge compression fracture of first lumbar vertebra, initial encounter for closed fracture (principal); R03.0 Elevated blood-pressure reading, without diagnosis of hypertension; Y92.9 Unspecified place or not applicable; Y93.9 Activity, unspecified; Y99.9 Unspecified external cause status; V49.40XA Driver injured in collision with unspecified motor vehicles in traffic accident, initial encounter; Z88.0 Allergy status to penicillin; Z79.899 Other long term (current) drug therapy